=== PATIENT | male | born 1990 | race Caucasian/White ===

== ENCOUNTER 2020-10-07 11:09 | Inpatient (IN) | payer OTHER ==
[~2020-10-07] VITALS: Ht 188 cm; Wt 84.4 kg
[2020-10-07 11:50] LABS: RED BLOOD COUNT 1.55 M/UL (4.20-5.50); WHITE BLOOD COUNT 2.7 K/UL (4.5-11.0)
[2020-10-07 11:58] LABS: HEMOGLOBIN 5.8 gm/dl (14.0-17.5)
[2020-10-07 12:18] LABS: BUN/CREATININE RATIO 13 (0-10)
[2020-10-07] MEDS ORDERED: DAILY VALUE1 EACH PO (13:47)
[2020-10-07] MEDS ORDERED: VITAMIN B-125000 MC2 PO (13:48)
[2020-10-08 03:06] LABS: HEMOGLOBIN 7.8 gm/dl (14.0-17.5); RED BLOOD COUNT 2.38 M/UL (4.20-5.50); WHITE BLOOD COUNT 3.7 K/UL (4.5-11.0)
[2020-10-08 03:32] LABS: BUN/CREATININE RATIO 10 (0-10)
[2020-10-08 12:14] LABS: HAPTOGLOBIN 29 mg/dL (17-317)
[2020-10-08 16:11] LABS: HEMATOCRIT 15.9 % (37.5-51.0)
[2020-10-09 04:44] LABS: HEMOGLOBIN 8.3 gm/dl (14.0-17.5); RED BLOOD COUNT 2.56 M/UL (4.20-5.50); WHITE BLOOD COUNT 3.8 K/UL (4.5-11.0)
[2020-10-09 08:14] LABS: HIV SCREEN 4TH GENERATION WRFX Non Reactive (Non Reactive)
[2020-10-09 10:14] LABS: HBSAG SCREEN Negative (Negative); HEP A AB, IGM Negative (Negative); HEP B CORE AB, IGM Negative (Negative); HEP C VIRUS AB <0.1 (0.0-0.9)
[2020-10-10 16:12] LABS: PARVOVIRUS B19, IGM 0.5 index (0.0-0.8)
== END 2020-10-09 10:08 | disposition home or self-care (01) | DRG 808 ==
LOC: ER1 11:09 → CDU 13:05 → MED SURG 4 13:58
PROVIDERS: Family Medicine; Physician Assistant; Registered Nurse; ADMIT Internal Medicine
PROC: 8E0ZXY6 Isolation (ICD-10-PCS; principal; 2020-10-07)
PROC: 30233N1 Transfusion of Nonautologous Red Blood Cells into Peripheral Vein, Percutaneous Approach (ICD-10-PCS; 2020-10-07)
PROC: 30233R1 Transfusion of Nonautologous Platelets into Peripheral Vein, Percutaneous Approach (ICD-10-PCS; 2020-10-08)
PROC: 3E02340 Introduction of Influenza Vaccine into Muscle, Percutaneous Approach (ICD-10-PCS; 2020-10-09)
DX: D61.818 Other pancytopenia (principal); U07.1 COVID-19; D69.6 Thrombocytopenia, unspecified; D70.9 Neutropenia, unspecified; D64.9 Anemia, unspecified; E80.6 Other disorders of bilirubin metabolism; R04.0 Epistaxis; F17.220 Nicotine dependence, chewing tobacco, uncomplicated; F31.9 Bipolar disorder, unspecified; F41.9 Anxiety disorder, unspecified; F17.290 Nicotine dependence, other tobacco product, uncomplicated; Z83.3 Family history of diabetes mellitus; Z83.2 Family history of diseases of the blood and blood-forming organs and certain disorders involving the immune mechanism; Z82.49 Family history of ischemic heart disease and other diseases of the circulatory system; Z23 Encounter for immunization
CPT/HCPCS: 36415; 36430; 71045; 80053; 80074; 80307; 81001; 82272; 82607; 82728; 82747; 83010; 83615; 83690; 83921; 84439; 84443; 85025; 85045; 85610; 86747; 86850; 86900; 86901; 86920; 87040; 87389; 90686; 99285; G0008; P9016; P9035; U0002

== ENCOUNTER → 2020-10-13 | Outpatient (CLI) | payer OTHER ==
[~2020-10-13] MED LIST: BUSPIRONE HCL7.5 MG PO; DAILY VALUE1 EACH PO; PREDNISONE 20 M20 MG PO; VITAMIN B-125000 MC2 PO
[2020-10-13 13:33] LABS: HEMOGLOBIN 8.1 gm/dl (14.0-17.5); RED BLOOD COUNT 2.43 M/UL (4.20-5.50); WHITE BLOOD COUNT 2.9 K/UL (4.5-11.0)
== END ==
LOC: LAB 13:10
PROVIDERS: Internal Medicine
DX: D61.818 Other pancytopenia (principal)
CPT/HCPCS: 36415; 85025

== ENCOUNTER → 2020-10-15 | Outpatient (CLI) | payer OTHER | LOC: OPSV 11:27 | DX: D61.818 Other pancytopenia (principal) | CPT/HCPCS: 36415; 36430; 85049; 86900; 86901; P9037 ==

== ENCOUNTER 2020-10-24 14:18 | Outpatient (CLI) | payer OTHER ==
[~2020-10-24] VITALS: Ht 188 cm; Wt 83.9 kg
[~2020-10-24 14:18] MED LIST changes: -BUSPIRONE HCL7.5 MG PO; -PREDNISONE 20 M20 MG PO
[2020-10-24 15:18] LABS: HEMOGLOBIN 7.2 gm/dl (14.0-17.5)
== END 2020-10-24 23:22 | disposition home or self-care (01) ==
LOC: OPSV 14:18 → MED SURG 4 15:46 → OPSV 23:22
PROVIDERS: Internal Medicine Hematology & Oncology
DX: D61.818 Other pancytopenia (principal); D64.9 Anemia, unspecified
CPT/HCPCS: 36415; 36430; 85014; 85018; 85049; 86850; 86900; 86901; 86920; J1940; P9016; P9037

== ENCOUNTER → 2020-10-31 | Outpatient (CLI) | payer OTHER ==
[~2020-10-31] MED LIST changes: +BUSPIRONE HCL7.5 MG PO; +PREDNISONE 20 M20 MG PO
== END ==
LOC: OPSV 13:00
DX: D61.818 Other pancytopenia (principal); D64.9 Anemia, unspecified
CPT/HCPCS: 36415; 36430; 86900; 86901; 96374; J2930; J7050; P9035

== ENCOUNTER 2020-11-12 19:08 | Emergency (ER) | payer OTHER ==
[~2020-11-12 19:08] MED LIST changes: -BUSPIRONE HCL7.5 MG PO; -PREDNISONE 20 M20 MG PO
[2020-11-12 19:58] LABS: HEMOGLOBIN 7.8 gm/dl (14.0-17.5); RED BLOOD COUNT 2.4 M/UL (4.20-5.50); WHITE BLOOD COUNT 5.2 K/UL (4.5-11.0)
== END 2020-11-13 01:47 | disposition home or self-care (01) ==
LOC: ER1 19:08
PROVIDERS: Emergency Medicine
DX: D64.9 Anemia, unspecified (principal); D69.6 Thrombocytopenia, unspecified; S80.12XA Contusion of left lower leg, initial encounter; F17.220 Nicotine dependence, chewing tobacco, uncomplicated; X58.XXXA Exposure to other specified factors, initial encounter
CPT/HCPCS: 36430; 85025; 86900; 86901; 96374; 99284; J1100; P9035; P9037

== ENCOUNTER 2020-11-19 11:56 | Outpatient (CLI) | payer OTHER ==
[~2020-11-19] VITALS: Ht 188 cm; Wt 83.9 kg
[2020-11-19 12:44] LABS: HEMOGLOBIN 7.3 gm/dl (14.0-17.5)
[2020-11-19] MEDS ORDERED: BUSPIRONE HCL7.5 MG PO (15:27)
[2020-11-19] MEDS ORDERED: PREDNISONE 20 M20 MG PO (15:27)
== END 2020-11-19 19:58 | disposition home or self-care (01) ==
LOC: OPSV 11:56 → MED SURG 4 15:18 → OPSV 19:58
PROVIDERS: Internal Medicine Hematology & Oncology
DX: D61.818 Other pancytopenia (principal); D64.9 Anemia, unspecified
CPT/HCPCS: 36415; 36430; 85014; 85018; 85049; 86850; 86900; 86901; 86920; J2930; P9016; P9035

== ENCOUNTER → 2020-12-05 | Outpatient (CLI) | payer OTHER ==
[~2020-12-05] VITALS: Ht 188 cm; Wt 84.4 kg
[~2020-12-05] MED LIST changes: +BUSPIRONE HCL7.5 MG PO; +PREDNISONE 20 M20 MG PO
[2020-12-05 08:54] LABS: HEMOGLOBIN 6.7 gm/dl (14.0-17.5)
== END ==
LOC: OPSV 08:00
PROVIDERS: Internal Medicine Hematology & Oncology
DX: D61.818 Other pancytopenia (principal)
CPT/HCPCS: 36415; 36430; 85014; 85018; 86850; 86900; 86901; 86920; J1940; J7050; P9040

== ENCOUNTER → 2020-12-11 | Outpatient (CLI) | payer OTHER ==
[~2020-12-11] VITALS: Ht 188 cm; Wt 84.4 kg
== END ==
LOC: OPSV 10:59
DX: D61.818 Other pancytopenia (principal)
CPT/HCPCS: 36415; 36430; 85049; 86900; 86901; J2930; P9037

== ENCOUNTER → 2020-12-22 | Outpatient (CLI) | payer OTHER | LOC: EROP 11:13 | DX: D61.818 Other pancytopenia (principal) | CPT/HCPCS: 36415; 36430; 86900; 86901; J2930; P9037 ==

== ENCOUNTER → 2020-12-26 | Outpatient (CLI) | payer OTHER ==
[~2020-12-26] VITALS: Ht 188 cm; Wt 84.4 kg
== END ==
LOC: OPSV 07:28
PROVIDERS: Internal Medicine Hematology & Oncology
DX: D64.9 Anemia, unspecified (principal)
CPT/HCPCS: 36430; 85014; 85018; 86850; 86900; 86901; 86920; J1940; J2930; J7050; P9040

== ENCOUNTER → 2021-01-01 | Outpatient (CLI) | payer OTHER ==
[~2021-01-01] VITALS: Ht 188 cm; Wt 84.4 kg
== END ==
LOC: OPSV 11:37
DX: D61.818 Other pancytopenia (principal)
CPT/HCPCS: 36415; 36430; 85049; 86900; 86901; J2930; P9037